=== PATIENT | male | born 1975 | race Two or more races ===

== ENCOUNTER 2020-08-16 05:34 | Day surgery (SDC) | payer OTHER | END 2020-08-16 09:15 | disposition home or self-care (01) | LOC: AMB-ENDOS 05:34 | PROVIDERS: ATTEND Colon & Rectal Surgery | DX: K63.5 Polyp of colon (principal); Z20.828 Contact with and (suspected) exposure to other viral communicable diseases; K64.2 Third degree hemorrhoids ==

== ENCOUNTER 2021-07-14 07:55 | Outpatient (CLI) | payer OTHER | END 2021-07-14 07:57 | disposition home or self-care (01) | LOC: LAB 07:55 | PROVIDERS: ATTEND Obstetrics & Gynecology | DX: Z20.818 Contact with and (suspected) exposure to other bacterial communicable diseases (principal); Z20.828 Contact with and (suspected) exposure to other viral communicable diseases ==

== ENCOUNTER 2022-02-05 20:09 | Inpatient (IN) | payer OTHER ==
[~2022-02-05] VITALS: Ht 170.2 cm; Wt 58.1 kg
[2022-02-05] MEDS ORDERED: AMITRIPTYLINE H10 MG PO (20:19)
[2022-02-05] MEDS ORDERED: HYOSCYAMINE0.125 M1 SL (20:20)
[2022-02-14] MEDS ORDERED: PANTOPRAZOLE SO40 MG PO (13:10)
[2022-02-14] MEDS ORDERED: PEPCID AC20 MG PO (13:11)
[2022-02-14] MEDS ORDERED: LEVSIN/SL0.125 MG SL (13:13)
[2022-02-14] MEDS ORDERED: CULTURELLE1 EACH PO (13:14)
== END 2022-02-14 13:21 | disposition home or self-care (01) | DRG 392 ==
LOC: ER 20:09 → SURG 23:27 → SURH 23:27
PROVIDERS: ADMIT Colon & Rectal Surgery; ATTEND Colon & Rectal Surgery
PROC: BW21ZZZ Computerized Tomography (CT Scan) of Abdomen and Pelvis (ICD-10-PCS; 2022-02-05)
PROC: 02HV33Z Insertion of Infusion Device into Superior Vena Cava, Percutaneous Approach (ICD-10-PCS; principal; 2022-02-07)
PROC: BW21YZZ Computerized Tomography (CT Scan) of Abdomen and Pelvis using Other Contrast (ICD-10-PCS; 2022-02-10)
DX: K57.20 Diverticulitis of large intestine with perforation and abscess without bleeding (principal); K21.9 Gastro-esophageal reflux disease without esophagitis; K59.09 Other constipation; Z20.822 Contact with and (suspected) exposure to COVID-19

== ENCOUNTER 2022-03-12 12:20 | Outpatient (CLI) | payer OTHER ==
[~2022-03-12 12:20] MED LIST: AMITRIPTYLINE H10 MG PO; CULTURELLE1 EACH PO; HYOSCYAMINE0.125 M1 SL; LEVSIN/SL0.125 MG SL; PANTOPRAZOLE SO40 MG PO; PEPCID AC20 MG PO
== END 2022-03-12 12:28 | disposition home or self-care (01) ==
LOC: LAB 12:20
PROVIDERS: ATTEND Radiology Diagnostic Radiology
DX: K57.20 Diverticulitis of large intestine with perforation and abscess without bleeding (principal)

== ENCOUNTER 2022-03-16 08:52 | Outpatient (CLI) | payer OTHER | END 2022-03-16 08:58 | disposition home or self-care (01) | LOC: TOM 08:52 | PROVIDERS: ATTEND Colon & Rectal Surgery | DX: K57.20 Diverticulitis of large intestine with perforation and abscess without bleeding (principal) ==

== ENCOUNTER 2022-03-30 08:31 | Outpatient (CLI) | payer OTHER | END 2022-03-30 08:36 | disposition home or self-care (01) | LOC: RAD 08:31 | PROVIDERS: ATTEND Colon & Rectal Surgery | DX: K58.9 Irritable bowel syndrome, unspecified (principal); R10.84 Generalized abdominal pain; R19.4 Change in bowel habit ==

== ENCOUNTER 2022-04-02 11:30 | Inpatient (IN) | payer OTHER ==
[~2022-04-02] VITALS: Ht 170.2 cm; Wt 52.6 kg
== END 2022-04-22 23:22 | disposition home or self-care (01) | DRG 330 ==
LOC: SURG 04-07 05:20 → O/R 04-07 05:20 → SURH 04-07 11:09 → SURG 04-07 13:43 → SURH 04-07 21:15 → SURG 04-22 23:22
PROVIDERS: ADMIT Colon & Rectal Surgery; ATTEND Colon & Rectal Surgery
PROC: 0DBP4ZZ Excision of Rectum, Percutaneous Endoscopic Approach (ICD-10-PCS; 2022-04-07)
PROC: 0DTN4ZZ Resection of Sigmoid Colon, Percutaneous Endoscopic Approach (ICD-10-PCS; principal; 2022-04-07 21:15)
PROC: BW21YZZ Computerized Tomography (CT Scan) of Abdomen and Pelvis using Other Contrast (ICD-10-PCS; 2022-04-13)
PROC: 0W9J30Z Drainage of Pelvic Cavity with Drainage Device, Percutaneous Approach (ICD-10-PCS; 2022-04-16)
PROC: 02HV33Z Insertion of Infusion Device into Superior Vena Cava, Percutaneous Approach (ICD-10-PCS; 2022-04-17)
PROC: BW21YZZ Computerized Tomography (CT Scan) of Abdomen and Pelvis using Other Contrast (ICD-10-PCS; 2022-04-21)
DX: K57.20 Diverticulitis of large intestine with perforation and abscess without bleeding (principal); K68.11 Postprocedural retroperitoneal abscess; K58.9 Irritable bowel syndrome, unspecified; D72.828 Other elevated white blood cell count; R00.0 Tachycardia, unspecified; R59.0 Localized enlarged lymph nodes; D75.838 Other thrombocytosis; R10.84 Generalized abdominal pain; R19.4 Change in bowel habit; Z20.822 Contact with and (suspected) exposure to COVID-19; B95.2 Enterococcus as the cause of diseases classified elsewhere; F43.23 Adjustment disorder with mixed anxiety and depressed mood